=== PATIENT | male | born 1945 | race Caucasian/White ===

== ENCOUNTER 2018-04-16 06:15 | Day surgery (SDC) | payer MEDICARE, OTHER ==
[2018-04-13 10:23] VITALS: BMI 36.6
--- NOTE | 2018-04-15 22:43 | HP ---
HISTORY OF PRESENT ILLNESS: Mr. Nolen is a pleasant 72-year-old gentleman who presents for evaluati on of nearly 40 years' worth of pain in his lower back as well as what appears to be L5 pains in a pa rtial fashion bilaterally, left worse than right who has had 2 years with epidural steroid injections with Dr. Yepez in [place], which helped a bit, more definitive treatment. MRI on disk r eveals severe foraminal stenosis at L3 and L4 bilaterally with some lateral recess stenosis as well. PAST MEDICAL HISTORY: Significant for COPD and old coronary artery disease, BPH, hypertension. CURRENT MEDICATIONS: Terazosin, trazodone, Symbicort, ropinirole, omeprazole, propranolol, prazosin, ketaconazole, hydrocortisone, gabapentin, fluocinonide, cetirizine, Brilinta, bupropion, atorvastati n, atenolol, allopurinol, and albuterol. PAST SURGICAL HISTORY: Cholecystectomy, lithotripsy, knee replacement, right and left shoulder repai rs. PHYSICAL EXAMINATION: The patient is alert and oriented x3. Gait is slow and antalgic. Lower extre mity motor exam is normal. He does have a positive right and left straight leg raise. ASSESSMENT: Lumbar radiculopathy. PLAN: Dr. Bullock met with the patient, reviewed imaging and ultimately advocated for L4-L5 laminectom y and bilateral L4 foraminotomies. He explained to the patient the risks, benefits, alternatives of the procedure. The patient expressed understanding and would like to move forward with surgery as di trentussed. I do believe the patient is probably capable of making medical decisions for himself and wi ll move forward with surgery as planned.
[2018-04-16] MEDS ORDERED: CEFAZOLIN/Water 2 GM/20 ML SYRINGE ONE ×2 (07:01→11:06)
[2018-04-16] MEDS ORDERED: Thrombin 5000 UNITS/5 ML VIAL ONE (08:10)
[2018-04-16] MEDS ORDERED: Bupivacaine HCl 0.5%/Epinephrine 1:200,000/PF 30 ml Vial ONE (08:10)
[2018-04-16] MEDS ORDERED: Fentanyl 100 MCG/2 ML VIAL ONE ×2 (08:33→09:41)
[2018-04-16] MEDS ORDERED: Famotidine/PF 20 mg/2ml Vial ONE (08:34)
[2018-04-16] MEDS ORDERED: Tamsulosin HCl 0.4 MG CAP ONE (10:16)
[2018-04-16] MEDS ORDERED: Morphine 4 MG/ML VIAL ONE (10:22)
--- NOTE | 2018-04-16 13:01 | OP ---
DATE OF PROCEDURE: 04/16/2018 SURGEON: Josh Bullock M.D. [employer] PELLETI[employer]ER: Geoff Louis PA-C. INDICATION: Pain. DIAGNOSIS: Lumbar stenosis. PROCEDURE: L4-5 lumbar decompression, bilateral medial facetectomies, foraminotomies. ANESTHESIA: General. TECHNIQUE: The patient was brought into the operating room and placed under general anesthesia. He was flipped from a supine to a prone position on the operating room table. A linear incision was pablo nned over the L4-L5 segment. After prepping and draping and after an appropriate operative pause, th e incision was created. The soft tissues were swept away from midline. Self-retaining retractors we re placed in the wound for optimal exposure. After confirming the appropriate levels with C-arm fluo roscopy, an Adson rongeur was used to remove the spinous process along the inferior two-thirds of L4 and the superior third of L5. High-speed cutting drill bit as well as 2, 3 and 4 mm Kerrisons were u sed to perform a laminectomy. Laminectomy was extended to encompass the medial aspect of the facet j oints until the lateral recesses were well decompressed. Foraminotomies were performed over the L4 e xiting nerve roots on both sides. The wound was irrigated. Hemostasis was maintained throughout. T he wound was then closed in anatomic layers and a pressure dressing was applied. There were no known procedural complications.
--- NOTE | 2018-04-17 17:41 | EKG ---
Test Reason : PREOP Blood Pressure : / mmHG Vent. Rate : 062 BPM Atrial Rate : 062 BPM P-R Int : 204 ms QRS Dur : 102 ms QT Int : 418 ms P-R-T Axes : 053 028 040 degrees QTc Int : 424 ms Normal sinus rhythm Normal ECG No previous ECGs available Confirmed by DR. Obed DAVIS ([id number]) on 04/17/2018 5:40:25 PM Referred By: REUBEN Confirmed By:DR. Obed DAVIS
== END 2018-04-16 11:55 | disposition home or self-care (01) ==
LOC: SDC 06:15
PROVIDERS: ATTEND Neurological Surgery
PROC: 01NB0ZZ Release Lumbar Nerve, Open Approach (ICD-10-PCS; principal; 2018-04-16)
DX: M48.061 Spinal stenosis, lumbar region without neurogenic claudication (principal); M54.16 Radiculopathy, lumbar region; J44.9 Chronic obstructive pulmonary disease, unspecified; I25.10 Atherosclerotic heart disease of native coronary artery without angina pectoris; I10 Essential (primary) hypertension; N40.0 Benign prostatic hyperplasia without lower urinary tract symptoms; Z79.899 Other long term (current) drug therapy; Z88.2 Allergy status to sulfonamides; Z88.8 Allergy status to other drugs, medicaments and biological substances; Z96.659 Presence of unspecified artificial knee joint; Z98.890 Other specified postprocedural states
CPT/HCPCS: 76001; 93005; 93010; 96374; 96375; J0131; J0670; J2270; J3010; S0028